=== PATIENT | female | born 1965 | race African-American/Black ===

== ENCOUNTER 2016-09-13 21:30 | Inpatient (IN) | payer OTHER ==
[~2016-09-13] VITALS: Ht 170.2 cm; Wt 65.3 kg
[2016-09-13] MEDS ORDERED: ONDANSETRON PF 4 MG/2 ML VIAL. ONE (21:49)
[2016-09-13] MEDS ORDERED: IV NORMAL SALINE 1000ML BAG 1,000 ML IV SCH ×2 (22:15→23:45)
[2016-09-13] MEDS ORDERED: CLONIDINE HCL 0.1 MG TABLET PO ONE (22:15)
[2016-09-13] MEDS ORDERED: LORAZEPAM 2 MG/ML VIAL IV ONE (22:15)
[2016-09-13 22:21] LABS: BASO # 0.1 x10^3/uL (0.0-0.2); BASO % 1 % (0-3); EOS % 1 % (0-3); HEMATOCRIT 44.9 % (36.0-47.0); HEMOGLOBIN 14.9 g/dL (12.0-15.5); LYMPH # 2.2 x10^3/uL (1.0-4.8); LYMPH % 19 % (24-48); MEAN CORPUSCULAR HEMOGLOBIN 31 pg (25-35); MEAN CORPUSCULAR HGB CONC 33 g/dL (31-37); MEAN CORPUSCULAR VOLUME 92 fL (79-100); MONO % 7 % (0-9); NEUT % 73 % (31-73); PLATELET COUNT 220 x10^3/uL (140-400); RED BLOOD COUNT 4.87 x10^6/uL (3.50-5.40); RED CELL DISTRIBUTION WIDTH 13.7 % (11.5-14.5); WHITE BLOOD COUNT 11.6 x10^3/uL (4.0-11.0)
[2016-09-13 22:38] LABS: BILIRUBIN,URINE NEGATIVE (NEG); GLUCOSE,URINE NEGATIVE (NEG); NITRITE,URINE NEGATIVE (NEG); PROTEIN,URINE NEGATIVE (NEG-TRACE); UROBILINOGEN,URINE 0.2 mg/dL (0.2 mg/dL)
[2016-09-13 22:42] LABS: BACTERIA,URINE FEW /HPF (0-FEW); RBC,URINE OCC /HPF (0-2); SQUAMOUS EPITHELIAL CELL,UR MANY /LPF
[2016-09-13 22:43] LABS: CALCIUM 9.8 mg/dL (8.5-10.1); CREATININE 1.3 mg/dL (0.6-1.0); GFR 52.3; POTASSIUM 3.3 mmol/L (3.5-5.1)
[2016-09-13 22:48] LABS: ALBUMIN 4.5 g/dL (3.4-5.0); ALBUMIN/GLOBULIN RATIO 0.8 (1.0-1.7); MAGNESIUM 1.9 mg/dL (1.8-2.4); TOTAL BILIRUBIN 0.6 mg/dL (0.2-1.0); TOTAL PROTEIN 9.9 g/dL (6.4-8.2)
[2016-09-13 23:05] LABS: CREATINE KINASE 214 U/L (26-192)
[2016-09-13 23:06] LABS: CKMB MASS < 0.5 ng/mL (0.0-3.6)
--- NOTE | 2016-09-13 23:11 | PHYS DOC ---
Past Medical History Past Medical History: Anxiety, Diabetes-Type II, Hypertension, Other Additional Past Medical Histor: OSTEOPOROSIS, RHEUMATOID ARTHRITIS Past Surgical History: No Surgical History Alcohol Use: None Drug Use: Marijuana Adult General Chief Complaint Chief Complaint: ANXIETY/PANIC ATTACK HPI HPI Patient is a 51 year old female who presents with complaint of chest pain and anxiety. Patient states that her symptoms started earlier today and had been progressively worsening. Patient states that she has recently admitted to [facility] for treatment of opiate addiction. Patient states that she was receiving treatment for withdrawal symptoms at this facility over the past 2 days. Patient was released yesterday. Patient states that she was given prescription for Vistaril to help with symptoms. Patient states that despite treatment her symptoms have worsened. Patient states that she also takes lisinopril for treatment of blood pressure and states that she has not missed her medication. Patient states that she has not used opiates in 2 weeks. Patient rates her pain currently is 10 out of 10. Patient states that her chest pain is pressure-like. Patient has had associated nausea, vomiting, abdominal pain, and anxiety. Patient states that the symptoms are similar to previous history of withdrawal from opiates. Review of Systems Review of Systems Constitutional: Denies fever or chills [] Eyes: Denies change in visual acuity, redness, or eye pain [] HENT: Denies nasal congestion or sore throat [] Respiratory: Shortness of breath [] Cardiovascular: Chest pain [] GI: Abdominal pain, nausea, vomiting, diarrhea, denies bloody stools [] : Denies dysuria or hematuria [] Musculoskeletal: Denies back pain or joint pain [] Integument: Denies rash or skin lesions [] Neurologic: Headache, denies focal weakness or sensory changes [] Current Medications Current Medications Current Medications Medications (Trade) Dose Ordered Sig/Jeancarlos Start Time Stop Time Status Last Admin Dose Admin Clonidine HCl (Catapres) 0.3 mg 1X ONCE 09/13/16 22:15 09/13/16 22:16 DC 09/13/16 22:21 0.3 MG Lorazepam 1 mg 1 mg 1X ONCE 09/13/16 22:15 09/13/16 22:16 DC 09/13/16 22:24 1 MG Ondansetron HCl (Zofran) 4 mg STK-MED ONCE 09/13/16 21:49 09/13/16 21:50 DC Sodium Chloride (Iv Sodium Chloride 0.9% 1000ml Bag) 1,000 ml @ 1,000 mls/hr Q1H 09/13/16 22:15 09/13/16 23:14 DC 09/13/16 22:30 1,000 MLS/HR Allergies Allergies Allergies Coded Allergies Type Severity Reaction Last Updated Verified No Known Drug Allergies 09/13/16 No Physical Exam Physical Exam Constitutional: Alert, afebrile, appears anxious, actively vomiting. [] HENT: Normocephalic, atraumatic, bilateral external ears normal, oropharynx moist, no oral exudates, nose normal. [] Eyes: PERRLA, EOMI, conjunctiva normal, no discharge. [] Neck: Normal range of motion, no tenderness, supple, no stridor. [] Cardiovascular:Heart rate regular rhythm, no murmur [] Lungs & Thorax: Bilateral breath sounds clear to auscultation [] Abdomen: Bowel sounds normal, soft, no tenderness, no masses, no pulsatile masses. [] Skin: Warm, dry, no erythema, no rash. [] Back: No tenderness, no CVA tenderness. [] Extremities: No tenderness, no cyanosis, no clubbing, ROM intact, no edema. [] Neurologic: Alert and oriented X 3, normal motor function, normal sensory function, no focal deficits noted. [] Current Patient Data Vital Signs Vital Signs Date Time Temp Pulse Resp B/P Pulse Ox O2 Delivery O2 Flow Rate FiO2 09/13/16 22:21 59 237/118 09/13/16 21:30 99.0 21 99 Room Air 99.0 Lab Values Laboratory Tests Test 09/13/16 21:40 09/13/16 22:25 White Blood Count 11.6x10^3/uL (4.0-11.0) H Red Blood Count 4.87x10^6/uL (3.50-5.40) Hemoglobin 14.9g/dL (12.0-15.5) Hematocrit 44.9% (36.0-47.0) Mean Corpuscular Volume 92fL (79-100) Mean Corpuscular Hemoglobin 31pg (25-35) Mean Corpuscular Hemoglobin Concent 33g/dL (31-37) Red Cell Distribution Width 13.7% (11.5-14.5) Platelet Count 220x10^3/uL (140-400) Neutrophils (%) (Auto) 73% (31-73) Lymphocytes (%) (Auto) 19% (24-48) L Monocytes (%) (Auto) 7% (0-9) Eosinophils (%) (Auto) 1% (0-3) Basophils (%) (Auto) 1% (0-3) Neutrophils # (Auto) 8.4x10^3uL (1.8-7.7) H Lymphocytes # (Auto) 2.2x10^3/uL (1.0-4.8) Monocytes # (Auto) 0.8x10^3/uL (0.0-1.1) Eosinophils # (Auto) 0.1x10^3/uL (0.0-0.7) Basophils # (Auto) 0.1x10^3/uL (0.0-0.2) Sodium Level 141mmol/L (136-145) Potassium Level 3.3mmol/L (3.5-5.1) L Chloride Level 101mmol/L (98-107) Carbon Dioxide Level 28mmol/L (21-32) Anion Gap 12 (6-14) Blood Urea Nitrogen 15mg/dL (7-20) Creatinine 1.3mg/dL (0.6-1.0) H Estimated GFR (Cockcroft-Gault) 52.3 BUN/Creatinine Ratio 12 (6-20) Glucose Level 106mg/dL (70-99) H Calcium Level 9.8mg/dL (8.5-10.1) Magnesium Level 1.9mg/dL (1.8-2.4) Total Bilirubin 0.6mg/dL (0.2-1.0) Aspartate Amino Transferase (AST) 32U/L (15-37) Alanine Aminotransferase (ALT) 48U/L (14-59) Alkaline Phosphatase 108U/L (46-116) Creatine Kinase 214U/L (26-192) H Creatine Kinase MB (Mass) < 0.5ng/mL (0.0-3.6) Creatine Kinase MB Relative Index % (0-4) Troponin I Quantitative < 0.017ng/mL (0.000-0.055) Total Protein 9.9g/dL (6.4-8.2) H Albumin 4.5g/dL (3.4-5.0) Albumin/Globulin Ratio 0.8 (1.0-1.7) L Lipase 206U/L (73-393) Urine Collection Type Unknown Urine Color Yellow Urine Clarity Clear Urine pH 8.0 Urine Specific [place] 1.010 Urine Protein Negativemg/dL (NEG-TRACE) Urine Glucose (UA) Negativemg/dL (NEG) Urine Ketones (Stick) Negativemg/dL (NEG) Urine Blood Negative (NEG) Urine Nitrite Negative (NEG) Urine Bilirubin Negative (NEG) Urine Urobilinogen Dipstick 0.2mg/dL (0.2 mg/dL) Urine Leukocyte Esterase Small (NEG) Urine RBC Occ/HPF (0-2) Urine WBC 5-10/HPF (0-4) Urine Squamous Epithelial Cells Many/LPF Urine Bacteria Few/HPF (0-FEW) Laboratory Tests 09/13/16 21:40 Laboratory Tests 09/13/16 21:40 EKG EKG Interpreted by me: Heart rate 57, sinus rhythm, normal intervals, normal axis, no acute ST/T-wave abnormalities present [] Radiology/Procedures Radiology/Procedures Not performed [] Course & Med Decision Making Course & Med Decision Making Pertinent Labs and Imaging studies reviewed. (See chart for details) Patient was given IV Ativan and oral clonidine in the emergency department. Patient had vomiting shortly after receiving oral clonidine and patient's blood pressures remained dangerously high. The patient will be started on IV Cardene as the patient is experiencing active chest pain with critically high blood pressure. I spoke with Dr. Katz who accepted care of patient in hospital. Dragon Disclaimer Dragon Disclaimer This electronic medical record was generated, in whole or in part, using a voice recognition dictation system. Departure Departure Impression: Primary Impression: Malignant hypertension Additional Impression: Nausea and vomiting Disposition: 09 ADMITTED INPATIENT Admitting Physician: Fili Katz Condition: GUARDED Referrals: TONYA CASTILLO MD (PCP) Problem Qualifiers Additional Impression: Nausea and vomiting Vomiting type: unspecified Vomiting Intractability: unspecified Qualified Code: R11.2 - Nausea with vomiting, unspecified MATTHIEU VIZCARRA MD Sep 13, 2016 23:11
[2016-09-13] MEDS ORDERED: NICARDIPINE HCL 50 MG in IV NORMAL SALINE 250ML 250 ML IV PRN (23:30)
--- NOTE | 2016-09-13 23:33 | ACF ---
Admission Forms Criteria CHEST PAIN Clinical Indications for Admission to Inpatient Care (Place 'X' for any and all applicable criteria): Admission is indicated for chest pain and ANY ONE of the following(1)(2)(3)(4)(5 ): [ ]I. Angina with acute coronary syndrome (Also use Myocardial Infarction or Angina guideline) [ ]II. Hemodynamic instability [ ]III. Angina needing acute intervention as indicated by ALL of the following( 11)(12): [ ]a) Unstable angina is present as indicated by angina that is ANY ONE of the following: [ ]i) New onset [ ]ii) Nocturnal [ ]iii) Prolonged at rest [ ]iv) Progressive [ ]b) Angina warrants acute intervention as indicated by ANY ONE of the following: [ ]i) Recurrent angina (e.g, not responding as previously to treatment) [ ]ii) Angina at rest or with low-level activities despite initial medical therapy [ ]iii) New or presumably new ST-segment depression on ECG [ ]iv) Signs or symptoms of heart failure (eg, dyspnea, pulmonary edema) [ ]v) New or worsening mitral regurgitation [ ]vi) Hemodynamic instability [ ]vii) Dangerous arrhythmia (eg, sustained ventricular tachycardia) [ ]viii) History of percutaneous coronary intervention within 6 months [ ]ix) History of coronary artery bypass graft surgery [ ]x) SANCHEZ risk score of 2 or greater[A] [ ]xi) History of Diabetes(14) [ ]xii) High-risk cardiac ischemia findings on noninvasive testing (e.g, echocardiogram, treadmill testing, nuclear scan) [ ]xiii) Chronic renal insufficiency (ie, estimated GFR less than 60 mL/min/1.732m) [ ]xiv) Left ventricular ejection fraction less than 40% [ ]IV. Evidence of WI (eg, cardiac biomarkers positive, ST-segment elevation on ECG) also use Myocardial Infarction Criteria Form. [ ]V. Pulmonary edema [ ]. Respiratory distress [ ]VII. Chest pain indicative of serious diagnosis other than coronary artery disease (eg, aortic dissection) [ ]VIII. Contraindications and/or Inappropriate clinical situations for Observational Care in patients with Chest Pain, when ANY ONE of the following is required: [ ]a) Patient with risk factor for pulmonary embolism, acute coronary syndrome and myocardial infarction (18) [ ]b) Patient with Pulmonary embolism require an average LOS of 4.3 days, therefore emergency department observation management is inappropriate 18,23 [ ]c) Painful condition/s in the elderly, have the highest rate of recidivism after emergency department observation management (10.8%) 20,21,22 [ ]d) Elevated cardiac biomarker requires intensive and exhaustive care (19) [X]IX. General contraindications and/or Inappropriate clinical situations for Observational Care in patients with Chest Pain, when ANY ONE of the following is required: [ ]a) Prediction of prolongation of LOS based on ANY ONE of the following may be considered as a contraindication for observational care 2, 3, 4, 5, 6, 7, 8, 9, 10, 11 [ ]i) Age > 65 yrs. [ ]ii) Patient arriving by ambulance [ ]iii) Patient with high acuity [ ]iv) Patient requiring vital sign monitoring [ ]v) Patient on IV medication [X]b) Systolic blood pressures 180mmHg 3,12 [ ]c) Patient with altered mental status including delirium and other alteration of consciousness, (3) [ ]d) Patient whose discharge disposition will be to a [facility] home or rehabilitation home should not be managed in Emergency Department Observation Unit. CMS rule requires 3 days hospital stay before such placement. 3,13 [ ]e) Patient with failure to thrive due to broad array of etiologies 3,16,17 [ ]f) Inability to ambulate 3,14 Extended stay beyond goal length of stay may be needed for (1)(28): [ ]a) Specific condition diagnosed after evaluation (eg, pulmonary embolism, aortic dissection) [ ]b) Unstable angina [ ]c) Continued suspicion of acute coronary syndrome with inability to complete needed cardiac evaluation (eg, patient clinically unable to undergo stress testing) [ ]d) Myocardial infarction (Contents from ANGINA and CHEST PAIN clinical indications for admission to inpatient care have been integrated in this form) The original [email or web address] content created by [employer] has been revised. The portions of the content which have been revised are identified through the use of italic text or in bold, and [employer] has neither reviewed nor approved the modified material. All other unmodified content is copyright [employer]. Please see references footnoted in the original [employer] edition 2016 Admission Criteria Met?: Yes DAVID CARTER Sep 13, 2016 23:33
[2016-09-13] MEDS ORDERED: LORAZEPAM 2 MG/ML VIAL IV PRN (23:45)
[2016-09-13] MEDS ORDERED: ACETAMINOPHEN 325 MG TABLET. PO PRN (23:45)
[2016-09-13] MEDS ORDERED: ONDANSETRON PF 4 MG/2 ML VIAL. IV PRN (23:45)
[2016-09-14] VITALS (26 sets, daily range): BP systolic 136–208; BP diastolic 6–108
[2016-09-14] MEDS: LORAZEPAM 2 MG/ML VIAL IV PRN ×3 (00:45→09:14)
[2016-09-14 06:26] LABS: CALCIUM 9.6 mg/dL (8.5-10.1); CREATININE 1.1 mg/dL (0.6-1.0); GFR 63.4; POTASSIUM 3.2 mmol/L (3.5-5.1)
[2016-09-14] MEDS ORDERED: LISI-334 PO (06:38)
[2016-09-14] MEDS ORDERED: FOLI1TAB16 PO (06:45)
[2016-09-14] MEDS ORDERED: ZIPR20CA2 PO (06:45)
[2016-09-14] MEDS ORDERED: MULT-208 PO (06:45)
[2016-09-14] MEDS ORDERED: HYDR25CA PO (06:45)
--- NOTE | 2016-09-14 06:49 | EKG ---
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
[2016-09-14] MEDS ORDERED: ACETAMINOPHEN 325 MG TABLET. PO PRN (07:15)
[2016-09-14] MEDS ORDERED: ONDANSETRON PF 4 MG/2 ML VIAL. IV PRN ×2 (07:15→22:15)
[2016-09-14] MEDS ORDERED: hydrALAZINE 20 MG/ML VIAL. IVP PRN (07:15)
[2016-09-14] MEDS ORDERED: HYDROXYZINE PAMOATE 25 MG CAPSULE PO PRN (07:15)
[2016-09-14] MEDS ORDERED: PANTOPRAZOLE 40 MG TABLET. PO SCH (07:30)
[2016-09-14] MEDS ORDERED: IV NORMAL SALINE 1000ML BAG 1,000 ML IV SCH (07:45)
[2016-09-14] MEDS ORDERED: POTASSIUM CHLORIDE 40 MEQ in IV NORMAL SALINE 1000ML BAG 1,000 ML IV SCH (08:00)
[2016-09-14] MEDS ORDERED: FOLIC ACID 1 MG TABLET PO SCH (09:00)
[2016-09-14] MEDS ORDERED: MULTIVITAMIN with MINERAL TABLET. PO SCH (09:00)
[2016-09-14] MEDS ORDERED: ZIPRASIDONE 20 MG CAPSULE PO SCH (09:00)
[2016-09-14] MEDS ORDERED: PROMETHAZINE 12.5 MG in IV NORMAL SALINE 50ML 50 ML IV PRN (09:00)
[2016-09-14] MEDS ORDERED: LISINOPRIL 20 MG TABLET PO SCH (09:00)
--- NOTE | 2016-09-14 09:02 | PDOC1 ---
History and Physical Date of Admission Date of Admission DATE: 09/14/16 TIME: 08:54 Identification/Chief Complaint Chief Complaint chest pain and anxiety Source Source: Caregiver, Chart review, Patient History of Present Illness History of Present Illness 51 y./o AA female, prev PCP was DR. Tiara Forte but she has not seen him in a while and PCP wishes pt to be admitted under hospitalist group. Hx limited as pt appears weak, possibly from anxiolytic given at ER? Talks to me eyes closed and when asked she tells me her back is bothersome to her, but per staff was her abdomen, Emesis, K 3.2, Tachycardic, sinus, bounding heart beats Pt admitted for malignant HTN on nicardipine gtt in [facility] ICU Looking at ER records, recently being transitioned to some anti hypertensives? also known opiate addiction on some OP detox program,. Rest of hx again, scarce due pt uncooperation Past Medical History Cardiovascular: HTN Psych: Addictions Past Surgical History Past Surgical History: Other (unknown) Family History Family History: Family History Unknown Social History Smoke: No ALCOHOL: none Drugs: Other (addictions, opiate) Current Problem List Problem List Problems Medical Problems: (1) Malignant hypertension Status: Acute (2) Nausea and vomiting Status: Acute Problems: Current Medications Current Medications Current Medications Ondansetron HCl (Zofran) 4 mg STK-MED ONCE .ROUTE ; Start 09/13/16 at 21:49; Stop 09/13/16 at 21:50; Status DC Lorazepam 1 mg 1 mg 1X ONCE IV Last administered on 09/13/16 22:24; Start at 22:15; Stop 09/13/16 at 22:16; Status DC Sodium Chloride (Iv Sodium Chloride 0.9% 1000ml Bag) 1,000 ml @ 1,000 mls/hr Q1H IV Last administered on 09/13/16 22:30; Start 09/13/16 at 22:15; Stop at 23:14; Status DC Clonidine HCl 0.3 mg 0.3 mg 1X ONCE PO Last administered on 09/13/16 22:21; Start 09/13/16 at 22:15; Stop 09/13/16 at 22:16; Status DC Nicardipine HCl/ Sodium Chloride (Cardene/Iv Sodium Chloride 0.9% 250ml) 270 ml @ 0 mls/hr CONT PRN IV SEE I/O RECORD Last administered on 09/13/16 23:30; Start 09/13/16 at 23:30 Ondansetron HCl 4 mg 4 mg PRN Q8HRS PRN IV NAUSEA/VOMITING; Start 09/13/16 at 23:45; Stop 09/14/16 at 07:28; Status DC Sodium Chloride (Iv Sodium Chloride 0.9% 1000ml Bag) 1,000 ml @ 100 mls/hr Q10H IV Last administered on 09/14/16 00:55; Start 09/13/16 at 23:45; Stop at 07:28; Status DC Acetaminophen (Tylenol) 650 mg PRN Q4HRS PRN PO FEVER; Start 09/13/16 at 23:45 ; Stop 09/14/16 at 07:28; Status DC Lorazepam (Ativan) 2 mg PRN Q4HRS PRN IV ANXIETY / AGITATION; Start 09/13/16 at 23:45; Stop 09/14/16 at 00:43; Status DC Lorazepam 2 mg 2 mg PRN Q2HR PRN IV ANXIETY / AGITATION Last administered on 02:43; Start 09/14/16 at 00:45 Potassium Chloride/Sodium Chloride (Iv Sodium Chloride 0.9% 1000ml Bag) 1,020 ml @ 75 mls/hr [id number] IV ; Start 09/14/16 at 08:00; Stop 09/14/16 at 08:00; Status DC Ondansetron HCl (Zofran) 4 mg PRN Q8HRS PRN IV NAUSEA/VOMITING Last administered on 09/14/16 08:05; Start 09/14/16 at 07:15; Stop 09/14/16 at 08:41 ; Status DC Acetaminophen (Tylenol) 650 mg PRN Q4HRS PRN PO FEVER; Start 09/14/16 at 07:15 Hydralazine HCl (Apresoline) 10 mg PRN Q4HRS PRN IVP ELEVATED BP, SEE COMMENTS ; Start 09/14/16 at 07:15; Stop 09/14/16 at 07:47; Status DC Pantoprazole Sodium (Protonix) 40 mg DAILYAC PO ; Start 09/14/16 at 07:30; Stop 09/14/16 at 07:47; Status DC Folic Acid (Folic Acid) 1 mg DAILY PO ; Start 09/14/16 at 09:00; Stop 09/14/16 at 09:00; Status DC Hydroxyzine Pamoate (Vistaril) 25 mg PRN Q4HRS PRN PO ALLERGIES; Start at 07:15; Stop 09/14/16 at 07:47; Status DC Lisinopril (Prinivil) 20 mg DAILY PO ; Start 09/14/16 at 09:00; Stop 09/14/16 at 09:00; Status DC Ziprasidone (Geodon) 20 mg BID PO ; Start 09/14/16 at 09:00; Stop 09/14/16 at 09 :00; Status DC Multivitamins 1 tab 1 tab DAILY PO ; Start 09/14/16 at 09:00; Stop 09/14/16 at 09:00; Status DC Sodium Chloride (Iv Sodium Chloride 0.9% 1000ml Bag) 1,000 ml @ 100 mls/hr Q10H IV ; Start 09/14/16 at 07:45 Ondansetron HCl (Zofran) 4 mg PRN Q6HRS PRN IV NAUSEA/VOMITING; Start 09/15/16 at 07:15 Active Scripts Active Reported Multi-Day Vitamins (Multivitamin) 1 Each Tablet 1 Tab PO DAILY Folic Acid 1 Mg Tablet 1 Mg PO DAILY Vistaril (Hydroxyzine Pamoate) 25 Mg Capsule 25 Mg PO Q4HRS PRN 180 Days Geodon (Ziprasidone Hcl) 20 Mg Capsule 1 Cap PO BID Lisinopril 20 Mg Tablet 1 Tab PO DAILY Allergies Allergies: Coded Allergies: No Known Drug Allergies (Unverified , 09/13/16) ROS Review of System cant be obtained - pls refer to my HPI for reason Physical Exam General: No acute distress HEENT: Atraumatic, PERRLA Lungs: Clear to auscultation, Normal air movement Heart: S1S2, RRR, no thrills, no rubs, no gallops Cardiovascular: S1, S2 Breasts: Normal Abdomen: Soft, Other (tenderness epigastric area) Rectal Exam: not examined PELVIC: Nml ext genitalia Extremities: No clubbing, No cyanosis, No edema, Normal pulses, No tenderness/ swelling Skin: No rashes, No breakdown, No significant lesion Neuro: Normal gait, Normal speech, Strength at 5/5 X4 ext, Normal tone, Sensation intact, Cranial nerves 3-12 NL, Reflexes 2+ Psych/Mental Status: Mental status NL, Mood NL Vitals Vitals Vital Signs Date Time Temp Pulse Resp B/P Pulse Ox O2 Delivery O2 Flow Rate FiO2 09/14/16 08:38 103 16 157/87 99 Room Air 09/14/16 07:00 98.1 98.1 Labs Labs Laboratory Tests Test 09/13/16 21:40 09/13/16 22:25 09/14/16 05:35 White Blood Count 11.6x10^3/uL (4.0-11.0) Red Blood Count 4.87x10^6/uL (3.50-5.40) Hemoglobin 14.9g/dL (12.0-15.5) Hematocrit 44.9% (36.0-47.0) Mean Corpuscular Volume 92fL (79-100) Mean Corpuscular Hemoglobin 31pg (25-35) Mean Corpuscular Hemoglobin Concent 33g/dL (31-37) Red Cell Distribution Width 13.7% (11.5-14.5) Platelet Count 220x10^3/uL (140-400) Neutrophils (%) (Auto) 73% (31-73) Lymphocytes (%) (Auto) 19% (24-48) Monocytes (%) (Auto) 7% (0-9) Eosinophils (%) (Auto) 1% (0-3) Basophils (%) (Auto) 1% (0-3) Neutrophils # (Auto) 8.4x10^3uL (1.8-7.7) Lymphocytes # (Auto) 2.2x10^3/uL (1.0-4.8) Monocytes # (Auto) 0.8x10^3/uL (0.0-1.1) Eosinophils # (Auto) 0.1x10^3/uL (0.0-0.7) Basophils # (Auto) 0.1x10^3/uL (0.0-0.2) Sodium Level 141mmol/L (136-145) 138mmol/L (136-145) Potassium Level 3.3mmol/L (3.5-5.1) 3.2mmol/L (3.5-5.1) Chloride Level 101mmol/L (98-107) 99mmol/L (98-107) Carbon Dioxide Level 28mmol/L (21-32) 27mmol/L (21-32) Anion Gap 12 (6-14) 12 (6-14) Blood Urea Nitrogen 15mg/dL (7-20) 10mg/dL (7-20) Creatinine 1.3mg/dL (0.6-1.0) 1.1mg/dL (0.6-1.0) Estimated GFR (Cockcroft-Gault) 52.3 63.4 BUN/Creatinine Ratio 12 (6-20) Glucose Level 106mg/dL (70-99) 159mg/dL (70-99) Calcium Level 9.8mg/dL (8.5-10.1) 9.6mg/dL (8.5-10.1) Magnesium Level 1.9mg/dL (1.8-2.4) Total Bilirubin 0.6mg/dL (0.2-1.0) Aspartate Amino Transf (AST/SGOT) 32U/L (15-37) Alanine Aminotransferase (ALT/SGPT) 48U/L (14-59) Alkaline Phosphatase 108U/L (46-116) Creatine Kinase 214U/L (26-192) Creatine Kinase MB (Mass) < 0.5ng/mL (0.0-3.6) Creatine Kinase MB Relative Index % (0-4) Troponin I Quantitative < 0.017ng/mL (0.000-0.055) < 0.017ng/mL (0.000-0.055) Total Protein 9.9g/dL (6.4-8.2) Albumin 4.5g/dL (3.4-5.0) Albumin/Globulin Ratio 0.8 (1.0-1.7) Lipase 206U/L (73-393) Urine Collection Type Unknown Urine Color Yellow Urine Clarity Clear Urine pH 8.0 Urine Specific [place] 1.010 Urine Protein Negativemg/dL (NEG-TRACE) Urine Glucose (UA) Negativemg/dL (NEG) Urine Ketones (Stick) Negativemg/dL (NEG) Urine Blood Negative (NEG) Urine Nitrite Negative (NEG) Urine Bilirubin Negative (NEG) Urine Urobilinogen Dipstick 0.2mg/dL (0.2 mg/dL) Urine Leukocyte Esterase Small (NEG) Urine RBC Occ/HPF (0-2) Urine WBC 5-10/HPF (0-4) Urine Squamous Epithelial Cells Many/LPF Urine Bacteria Few/HPF (0-FEW) Laboratory Tests Test 09/13/16 21:40 09/13/16 22:25 09/14/16 05:35 White Blood Count 11.6x10^3/uL (4.0-11.0) Red Blood Count 4.87x10^6/uL (3.50-5.40) Hemoglobin 14.9g/dL (12.0-15.5) Hematocrit 44.9% (36.0-47.0) Mean Corpuscular Volume 92fL (79-100) Mean Corpuscular Hemoglobin 31pg (25-35) Mean Corpuscular Hemoglobin Concent 33g/dL (31-37) Red Cell Distribution Width 13.7% (11.5-14.5) Platelet Count 220x10^3/uL (140-400) Neutrophils (%) (Auto) 73% (31-73) Lymphocytes (%) (Auto) 19% (24-48) Monocytes (%) (Auto) 7% (0-9) Eosinophils (%) (Auto) 1% (0-3) Basophils (%) (Auto) 1% (0-3) Neutrophils # (Auto) 8.4x10^3uL (1.8-7.7) Lymphocytes # (Auto) 2.2x10^3/uL (1.0-4.8) Monocytes # (Auto) 0.8x10^3/uL (0.0-1.1) Eosinophils # (Auto) 0.1x10^3/uL (0.0-0.7) Basophils # (Auto) 0.1x10^3/uL (0.0-0.2) Sodium Level 141mmol/L (136-145) 138mmol/L (136-145) Potassium Level 3.3mmol/L (3.5-5.1) 3.2mmol/L (3.5-5.1) Chloride Level 101mmol/L (98-107) 99mmol/L (98-107) Carbon Dioxide Level 28mmol/L (21-32) 27mmol/L (21-32) Anion Gap 12 (6-14) 12 (6-14) Blood Urea Nitrogen 15mg/dL (7-20) 10mg/dL (7-20) Creatinine 1.3mg/dL (0.6-1.0) 1.1mg/dL (0.6-1.0) Estimated GFR (Cockcroft-Gault) 52.3 63.4 BUN/Creatinine Ratio 12 (6-20) Glucose Level 106mg/dL (70-99) 159mg/dL (70-99) Calcium Level 9.8mg/dL (8.5-10.1) 9.6mg/dL (8.5-10.1) Magnesium Level 1.9mg/dL (1.8-2.4) Total Bilirubin 0.6mg/dL (0.2-1.0) Aspartate Amino Transf (AST/SGOT) 32U/L (15-37) Alanine Aminotransferase (ALT/SGPT) 48U/L (14-59) Alkaline Phosphatase 108U/L (46-116) Creatine Kinase 214U/L (26-192) Creatine Kinase MB (Mass) < 0.5ng/mL (0.0-3.6) Creatine Kinase MB Relative Index % (0-4) Troponin I Quantitative < 0.017ng/mL (0.000-0.055) < 0.017ng/mL (0.000-0.055) Total Protein 9.9g/dL (6.4-8.2) Albumin 4.5g/dL (3.4-5.0) Albumin/Globulin Ratio 0.8 (1.0-1.7) Lipase 206U/L (73-393) Urine Collection Type Unknown Urine Color Yellow Urine Clarity Clear Urine pH 8.0 Urine Specific [place] 1.010 Urine Protein Negativemg/dL (NEG-TRACE) Urine Glucose (UA) Negativemg/dL (NEG) Urine Ketones (Stick) Negativemg/dL (NEG) Urine Blood Negative (NEG) Urine Nitrite Negative (NEG) Urine Bilirubin Negative (NEG) Urine Urobilinogen Dipstick 0.2mg/dL (0.2 mg/dL) Urine Leukocyte Esterase Small (NEG) Urine RBC Occ/HPF (0-2) Urine WBC 5-10/HPF (0-4) Urine Squamous Epithelial Cells Many/LPF Urine Bacteria Few/HPF (0-FEW) VTE Prophylaxis Ordered VTE Prophylaxis Devices: Yes VTE Pharmacological Prophylaxi: Yes Assessment/Plan Assessment/Plan 1. Malignant HTN POA 2. Emesis with hypokalemia 3. opiate addiction follows with OP pgm 4. Abd pain, acute 5,.Acute on chronic back pain 6. HIMA 7. Leukocytosis, reactive vs imflammatory PLAN: [facility] admit Nicardipine gtt Check CT abd pelvis without contrast (UA is relatively clean) Check lactate Monitor tachycardia Recheck BMP and CBC tammi ( crea and K) Replace K thru iV May check mag too Add phenergan IV Maintain liquid diet for now, may ADAT once less nausea DVT and pPI prophy for now dw [facility] RN OLVIN FAGAN MD Sep 14, 2016 09:02
--- NOTE | 2016-09-14 09:27 | RAD ---
Indication dizziness. Nausea vomiting. History of hypertension. Tachycardia. A single view of the chest was obtained. No prior imaging of the chest is available. Heart size is normal. The pulmonary vasculature is normal. Slightly tortuous thoracic aorta is noted. The lungs are clear. There is no pleural fluid or pneumothorax. The visualized bony structures appear grossly intact. IMPRESSION: No acute or focal process is seen in chest
[2016-09-14] MEDS: POTASSIUM CHLORIDE 10MEQ 100 ML IV SCH ×2 (09:37→12:50)
--- NOTE | 2016-09-14 10:21 | PDOC2 ---
NOLA BOYD DYE [employer] TESTING TECHNICIAN 09/14/16 1021: CARDIAC CONSULT DATE OF CONSULT Date of Consult DATE: 09/14/16 TIME: 10:17 REASON FOR CONSULT Reason for Consult: Malignant hypertension REFERRING PHYSICIAN Referring Physician: Dr. Valdivia SOURCE Source: Chart review, Patient HISTORY OF PRESENT ILLNESS HISTORY OF PRESENT ILLNESS This is a 51 yo female who presented with complaints of abdominal and chest pain. Patient drowsy, eyes closed; providing minimal information. Pain located in her mid-epigastric region extending up to central chest. Stabbing in nature. No other additional information provided. HPI mainly obtained from chart review as patient not cooperating. Patient was apparently at [facility] for treatment of opiate addiction. Was released 09/12 from facility. Received treatment for withdrawal; on Vistaril; symptoms worsened can into ED for further eval. Associated nausea/vomiting and anxiety; symptoms similar to previous history of withdrawal from opiates per chart review. Initial BP 246/120, which prompted this consult. Cardene gtt initiated. Unknown whether patient has been taking antiHTN therapy as prescribed. PAST MEDICAL HISTORY Cardiovascular: HTN Psych: Anxiety, Addictions Rheumatologic: Rheumatoid arthritis Endocrine: Diabetes, Osteoporosis PAST SURGICAL HISTORY Past Surgical History: Other (unknown) FAMILY HISTORY Family History: Family History Unknown CURRENT MEDICATIONS CURRENT MEDICATIONS Current Medications Medications (Trade) Dose Ordered Sig/Jeancarlos Route PRN Reason Start Time Stop Time Status Last Admin Dose Admin Lorazepam 1 mg 1 mg 1X ONCE IV 09/13/16 22:15 09/13/16 22:16 DC 09/13/16 22:24 Sodium Chloride (Iv Sodium Chloride 0.9% 1000ml Bag) 1,000 ml @ 1,000 mls/hr Q1H IV 09/13/16 22:15 09/13/16 23:14 DC 09/13/16 22:30 Clonidine HCl 0.3 mg 0.3 mg 1X ONCE PO 09/13/16 22:15 09/13/16 22:16 DC 09/13/16 22:21 Nicardipine HCl 50 mg/Sodium Chloride 270 ml @ 0 mls/hr CONT PRN IV SEE I/O RECORD 09/13/16 23:30 09/13/16 23:30 Sodium Chloride (Iv Sodium Chloride 0.9% 1000ml Bag) 1,000 ml @ 100 mls/hr Q10H IV 09/13/16 23:45 09/14/16 07:28 DC 09/14/16 00:55 Lorazepam (Ativan) 2 mg PRN Q2HR PRN IV ANXIETY / AGITATION 09/14/16 00:45 09/14/16 09:14 Ondansetron HCl 4 mg 4 mg PRN Q8HRS PRN IV NAUSEA/VOMITING 09/14/16 07:15 09/14/16 08:41 DC 09/14/16 08:05 Potassium Chloride (KCl Premix 10meq) 100 ml @ 100 mls/hr Q1H IV 09/14/16 09:00 09/14/16 10:59 09/14/16 09:37 ALLERGIES ALLERGIES: Coded Allergies: No Known Drug Allergies (Unverified , 09/13/16) ROS Review of System unobtainable PHYSICAL EXAM General: No acute distress, Other (drowsy, not wanting to cooperate ) HEENT: Atraumatic, Mucous membr. moist/pink Lungs: Clear to auscultation Heart: Normal S1, Normal S2, Other (tele ST. sternal tenderness upon palpation) Abdomen: Soft, Other (mid-epigastric tenderness) Extremities: No edema, Normal pulses Skin: No breakdown, No significant lesion Neuro: Normal tone, Sensation intact, Other Psych/Mental Status: Other (flat, drowsy) MUSCULOSKELETAL: No deformity, No swelling VITALS VITALS Vital Signs Date Time Temp Pulse Resp B/P Pulse Ox O2 Delivery O2 Flow Rate FiO2 09/14/16 08:38 103 16 157/87 99 Room Air 09/14/16 07:00 98.1 98.1 LABS Lab: Laboratory Tests Test 09/13/16 21:40 09/13/16 22:25 09/14/16 05:35 White Blood Count 11.6x10^3/uL (4.0-11.0) Red Blood Count 4.87x10^6/uL (3.50-5.40) Hemoglobin 14.9g/dL (12.0-15.5) Hematocrit 44.9% (36.0-47.0) Mean Corpuscular Volume 92fL (79-100) Mean Corpuscular Hemoglobin 31pg (25-35) Mean Corpuscular Hemoglobin Concent 33g/dL (31-37) Red Cell Distribution Width 13.7% (11.5-14.5) Platelet Count 220x10^3/uL (140-400) Neutrophils (%) (Auto) 73% (31-73) Lymphocytes (%) (Auto) 19% (24-48) Monocytes (%) (Auto) 7% (0-9) Eosinophils (%) (Auto) 1% (0-3) Basophils (%) (Auto) 1% (0-3) Neutrophils # (Auto) 8.4x10^3uL (1.8-7.7) Lymphocytes # (Auto) 2.2x10^3/uL (1.0-4.8) Monocytes # (Auto) 0.8x10^3/uL (0.0-1.1) Eosinophils # (Auto) 0.1x10^3/uL (0.0-0.7) Basophils # (Auto) 0.1x10^3/uL (0.0-0.2) Sodium Level 141mmol/L (136-145) 138mmol/L (136-145) Potassium Level 3.3mmol/L (3.5-5.1) 3.2mmol/L (3.5-5.1) Chloride Level 101mmol/L (98-107) 99mmol/L (98-107) Carbon Dioxide Level 28mmol/L (21-32) 27mmol/L (21-32) Anion Gap 12 (6-14) 12 (6-14) Blood Urea Nitrogen 15mg/dL (7-20) 10mg/dL (7-20) Creatinine 1.3mg/dL (0.6-1.0) 1.1mg/dL (0.6-1.0) Estimated GFR (Cockcroft-Gault) 52.3 63.4 BUN/Creatinine Ratio 12 (6-20) Glucose Level 106mg/dL (70-99) 159mg/dL (70-99) Calcium Level 9.8mg/dL (8.5-10.1) 9.6mg/dL (8.5-10.1) Magnesium Level 1.9mg/dL (1.8-2.4) Total Bilirubin 0.6mg/dL (0.2-1.0) Aspartate Amino Transf (AST/SGOT) 32U/L (15-37) Alanine Aminotransferase (ALT/SGPT) 48U/L (14-59) Alkaline Phosphatase 108U/L (46-116) Creatine Kinase 214U/L (26-192) Creatine Kinase MB (Mass) < 0.5ng/mL (0.0-3.6) Creatine Kinase MB Relative Index % (0-4) Troponin I Quantitative < 0.017ng/mL (0.000-0.055) < 0.017ng/mL (0.000-0.055) Total Protein 9.9g/dL (6.4-8.2) Albumin 4.5g/dL (3.4-5.0) Albumin/Globulin Ratio 0.8 (1.0-1.7) Lipase 206U/L (73-393) Urine Collection Type Unknown Urine Color Yellow Urine Clarity Clear Urine pH 8.0 Urine Specific [place] 1.010 Urine Protein Negativemg/dL (NEG-TRACE) Urine Glucose (UA) Negativemg/dL (NEG) Urine Ketones (Stick) Negativemg/dL (NEG) Urine Blood Negative (NEG) Urine Nitrite Negative (NEG) Urine Bilirubin Negative (NEG) Urine Urobilinogen Dipstick 0.2mg/dL (0.2 mg/dL) Urine Leukocyte Esterase Small (NEG) Urine RBC Occ/HPF (0-2) Urine WBC 5-10/HPF (0-4) Urine Squamous Epithelial Cells Many/LPF Urine Bacteria Few/HPF (0-FEW) ASSESSMENT/PLAN ASSESSMENT/PLAN 1. Malignant hypertension 2. Chest pain, atypical 3. Abdominal pain 4. Opiate withdrawal 5. Emesis 6. Hypokalemia 7. Leukocytosis 8. Lactic acidosis 9. HIMA Recommendations AMI ruled out. Monitor lytes; replace as warranted Hypertension and tachycardia secondary to opiate withdrawal; ? medication compliance Taking oral; resume aniHTN therapy- titrate off Cardene gtt as able. Monitor trends to assess need for therapy titration IV Hydralazine PRN Supportive care Management of withdrawal per PCP Problems: TYRA PEREZ MD 09/14/16 1529: CARDIAC CONSULT ALLERGIES ALLERGIES: Coded Allergies: No Known Drug Allergies (Unverified , 09/13/16) ASSESSMENT/PLAN ASSESSMENT/PLAN Patient seen and examined. Agree with above nurse practitioner note. 51-year-old woman with polysubstance abuse presenting with malignant hypertension. Blood pressure better controlled on intravenous drip. She appears somnolent on examination. Normal heart tones. Supportive care from a cardiac standpoint. We'll follow along. Problems: NOLA BOYD APRN Sep 14, 2016 10:21 TYRA PEREZ MD Sep 14, 2016 15:29
--- NOTE | 2016-09-14 11:17 | RAD ---
Noncontrast CT scan of the abdomen and pelvis without comparison for nausea and abdominal pain. Technique: Contiguous helical axial images are obtained from the apex the diaphragm to the pelvic floor. No IV contrast was administered. Sagittal and coronal reformations are evaluated. Findings: The lung bases are clear. Evaluation of the solid organ parenchyma is limited by lack of IV contrast. No gross morphologic abnormalities of the liver, spleen, pancreas, gallbladder, adrenal glands, or either kidney is identified. There is no hydronephrosis. No ureteral calcifications are seen. The urinary bladder is fluid distended and grossly unremarkable. There is a mild amount stool distributed throughout the colon. No gross bowel wall thickening or evidence of bowel obstruction is seen. The appendix is identified and appears normal. No suspicious lymphadenopathy is identified. No loculated fluid collections are evident. Within the pelvis, the uterus does appear enlarged, and there is a trace amount of adnexal fluid bilaterally. Findings may be physiologic. Clinical correlation is recommended. If clinically warranted, the pelvis could be better evaluated with transabdominal and endovaginal pelvic ultrasound. No suspicious osteoblastic or osteolytic bone lesions are evident. There is grade 1 anterolisthesis of L4 on L5, with severe bilateral facet arthrosis and what appears to be at least unilateral and possibly bilateral pars defects at L4. Moderate multifocal atherosclerosis is noted. Impression: 1. Enlarged uterus with a small amount of deep pelvic fluid. Findings are nonspecific and may be physiologic. Clinical correlation is recommended. If clinically warranted, further evaluation with transabdominal and endovaginal pelvic ultrasound could be pursued. 2. Grade 1 anterolisthesis of L4 on L5 with unilateral and possibly bilateral pars defects at L4. 3. No other discernible acute abdominal abnormality.
[2016-09-14 12:08] LABS: BARBITURATES NEG (NEG); BENZODIAZEPINES NEG (NEG); CANNABINOIDS POS (NEG); COCAINE POS (NEG); METHADONE NEG (NEG); OPIATES NEG (NEG); PHENCYCLIDINE NEG (NEG)
[2016-09-14 12:11] LABS: ETHANOL, URINE NEG (NEG)
[2016-09-14] MEDS ORDERED: MORPHINE SULFATE 2 MG/ML DISP.SYRIN. IV PRN (12:30)
[2016-09-14] MEDS: OXYCODONE/APAP 5/325 TABLET. PO PRN ×2 (12:48→23:00)
[2016-09-14] MEDS: LIDOCAINE (700MG/PATCH) PATCH. TD SCH (12:48)
[2016-09-14] MEDS: LISINOPRIL 20 MG TABLET PO SCH (14:20)
[2016-09-14] MEDS: hydrALAZINE 20 MG/ML VIAL. IVP PRN (14:21)
--- NOTE | 2016-09-14 21:23 | CONS ---
DATE OF CONSULTATION: 09/14/2016 ATTENDING PHYSICIAN: Dr. Marcum. The patient was seen at the request of Dr. Marcum for rehab evaluation. HISTORY OF PRESENT ILLNESS: This is a 51-year-old, right-handed female, on disability for about 20 years. The patient with chronic pain from rheumatoid arthritis and osteoporosis, being followed by Dr. Jason Forte and Dr. Krause, and has been taking opioids mainly heroin since May, and she has gone through detox program recently. The patient decided to stop taking that medication by herself. The patient was admitted to the Emergency Room this morning with chest pain and anxiety, started early this morning, getting worse. She had recently got admitted to [facility] [place] for treatment of opiate addiction. She was receiving treatment for withdrawal symptoms at that facility over the past 2 days. She was released yesterday. She was given a prescription for Vistaril to help with symptoms. Her symptoms had worsened. She takes lisinopril for treatment of hypertension. She has not used opiates in about 2 weeks. She admitted her pain at 10/10, pressure-like chest pain. Also had nausea, vomiting, abdominal pain, and anxiety. Symptoms are similar to previous history of withdrawal from opiates. The patient is not known allergic to any medication. Past medical history also includes diabetes mellitus type 2, hypertension. The patient lives alone, had stairs for her to manage, and she has been independent with her mobility and self-care skills, not using any assistive devices prior to the present hospitalization. She admits pain all over. She denies any radiation of pain from the back to the extremities. The patient was noted with white blood cell count of 11,600. She had CT scan of the abdomen and pelvis which revealed enlarged uterus with a small amount of deep pelvic fluid nonspecific; grade 1 anterolisthesis of L4 on L5 with unilateral and possibly bilateral pars defect at L4. No other acute abnormality was detected. Chest x-ray was within normal limits. PHYSICAL EXAMINATION: Today revealed a middle-aged female. The patient is awake, oriented to place and person, follows commands appropriately. Moves all 4 extremities voluntarily, where she had 4+/5 grade muscle strength. Deep tendon reflexes are decreased overall with absent knee and ankle jerks, and she had equal perception of touch and pinprick sensation bilaterally. No tenderness to palpation over thoracic or lumbar spine or adjoining sacroiliac joint area. Straight-leg raising test is negative bilaterally. She had pain-free range of motion of all four extremity joints. I have not tested her ambulation skills at this time, but she is independent with bed mobility. Her skin is intact. ASSESSMENT: The patient with malignant hypertension, atypical chest pain, abdominal pain, opiate withdrawal, with nausea, vomiting, hypokalemia, leukocytosis, lactic acidosis and acute kidney injury, and history of rheumatoid arthritis and osteoporosis, diabetes mellitus with peripheral neuropathy, anxiety. RECOMMENDATION: To get her up as tolerated. Home when medically stable with outpatient followup. Dr. Marcum, I appreciate asking me to participate in the care of this interesting patient. I will be glad to follow her with you as needed for her rehabilitation. MAL PATRICK MD DR: GILLES/anayeli JOB#: [id number] / [id number]
[2016-09-14] MEDS ORDERED: DIPHENHYDRAMINE 50 MG/ML VIAL IVP ONE (22:15)
[2016-09-14] MEDS ORDERED: DIPHENHYDRAMINE HCL 25 MG CAPSULE PO PRN (22:15)
[2016-09-15] VITALS (11 sets, daily range): BP systolic 118–183; BP diastolic 73–99
[2016-09-15] MEDS: hydrALAZINE 20 MG/ML VIAL. IVP PRN (01:25)
[2016-09-15 03:52] LABS: BASO # 0.1 x10^3/uL (0.0-0.2); BASO % 0 % (0-3); EOS % 0 % (0-3); HEMATOCRIT 41.4 % (36.0-47.0); HEMOGLOBIN 13.7 g/dL (12.0-15.5); LYMPH # 2.1 x10^3/uL (1.0-4.8); LYMPH % 16 % (24-48); MEAN CORPUSCULAR HEMOGLOBIN 30 pg (25-35); MEAN CORPUSCULAR HGB CONC 33 g/dL (31-37); MEAN CORPUSCULAR VOLUME 91 fL (79-100); MONO % 8 % (0-9); NEUT % 76 % (31-73); PLATELET COUNT 222 x10^3/uL (140-400); RED BLOOD COUNT 4.55 x10^6/uL (3.50-5.40); RED CELL DISTRIBUTION WIDTH 13.7 % (11.5-14.5); WHITE BLOOD COUNT 13.5 x10^3/uL (4.0-11.0)
[2016-09-15 04:03] LABS: CALCIUM 9.5 mg/dL (8.5-10.1); CREATININE 0.9 mg/dL (0.6-1.0); GFR 79.9; POTASSIUM 3.4 mmol/L (3.5-5.1)
[2016-09-15] MEDS: OXYCODONE/APAP 5/325 TABLET. PO PRN (04:21)
[2016-09-15] MEDS ORDERED: ONDANSETRON PF 4 MG/2 ML VIAL. IV PRN (07:15)
[2016-09-15] MEDS ORDERED: INSULIN ASPART 300 UNITS/3 ML INSULN.PEN SQ SCH (08:00)
[2016-09-15] MEDS ORDERED: PANTOPRAZOLE 40 MG TABLET. PO SCH (08:00)
[2016-09-15] MEDS ORDERED: DEXTROSE 50% 25 GM / 50ML DISP.SYRIN. IV PRN (08:00)
[2016-09-15] MEDS: LISINOPRIL 20 MG TABLET PO SCH (08:58)
[2016-09-15] MEDS: LIDOCAINE (700MG/PATCH) PATCH. TD SCH (08:59)
[2016-09-15] MEDS ORDERED: CLONIDINE HCL 0.1 MG TABLET PO SCH (09:00)
[2016-09-15] MEDS ORDERED: HYDROCHLOROTHIAZIDE 25 MG TABLET PO SCH (09:00)
--- NOTE | 2016-09-15 09:30 | PDOC ---
PROGRESS NOTES Subjective Subjective She c/o being scared going without narcotics.She has taken methadone 20 mg tid before and wants to try small dose of it. Objective Objective Vital Signs Date Time Temp Pulse Resp B/P Pulse Ox O2 Delivery O2 Flow Rate FiO2 09/15/16 08:58 86 129/85 09/15/16 08:00 18 95 Room Air 09/15/16 07:00 99.0 99.0 Intake and Output 09/15/16 07:00 Intake Total 2800 ml Output Total 2965 ml Balance -165 ml Intake Oral 670 ml IV Total 2130 ml Output Urine Total 2325 ml Emesis 640 ml # Bowel Movements 1 Physical Exam Physical Exam She is alert and sitting up in bed and seems to be in no acute distress and she got up to bathroom last night. Assessment Assessment Problems Medical Problems: (1) Malignant hypertension Status: Acute (2) Nausea and vomiting Status: Acute Plan Plan of Care To try her her methadone 10 mg tid and home when medically stable. Comment Review of Relevant I have reviewed the following items roxy (where applicable) has been applied. Labs Laboratory Tests Test 09/13/16 21:40 09/13/16 22:25 09/14/16 00:25 09/14/16 05:35 White Blood Count 11.6x10^3/uL (4.0-11.0) Red Blood Count 4.87x10^6/uL (3.50-5.40) Hemoglobin 14.9g/dL (12.0-15.5) Hematocrit 44.9% (36.0-47.0) Mean Corpuscular Volume 92fL (79-100) Mean Corpuscular Hemoglobin 31pg (25-35) Mean Corpuscular Hemoglobin Concent 33g/dL (31-37) Red Cell Distribution Width 13.7% (11.5-14.5) Platelet Count 220x10^3/uL (140-400) Neutrophils (%) (Auto) 73% (31-73) Lymphocytes (%) (Auto) 19% (24-48) Monocytes (%) (Auto) 7% (0-9) Eosinophils (%) (Auto) 1% (0-3) Basophils (%) (Auto) 1% (0-3) Neutrophils # (Auto) 8.4x10^3uL (1.8-7.7) Lymphocytes # (Auto) 2.2x10^3/uL (1.0-4.8) Monocytes # (Auto) 0.8x10^3/uL (0.0-1.1) Eosinophils # (Auto) 0.1x10^3/uL (0.0-0.7) Basophils # (Auto) 0.1x10^3/uL (0.0-0.2) Sodium Level 141mmol/L (136-145) 138mmol/L (136-145) Potassium Level 3.3mmol/L (3.5-5.1) 3.2mmol/L (3.5-5.1) Chloride Level 101mmol/L (98-107) 99mmol/L (98-107) Carbon Dioxide Level 28mmol/L (21-32) 27mmol/L (21-32) Anion Gap 12 (6-14) 12 (6-14) Blood Urea Nitrogen 15mg/dL (7-20) 10mg/dL (7-20) Creatinine 1.3mg/dL (0.6-1.0) 1.1mg/dL (0.6-1.0) Estimated GFR (Cockcroft-Gault) 52.3 63.4 BUN/Creatinine Ratio 12 (6-20) Glucose Level 106mg/dL (70-99) 159mg/dL (70-99) Calcium Level 9.8mg/dL (8.5-10.1) 9.6mg/dL (8.5-10.1) Magnesium Level 1.9mg/dL (1.8-2.4) Total Bilirubin 0.6mg/dL (0.2-1.0) Aspartate Amino Transf (AST/SGOT) 32U/L (15-37) Alanine Aminotransferase (ALT/SGPT) 48U/L (14-59) Alkaline Phosphatase 108U/L (46-116) Creatine Kinase 214U/L (26-192) Creatine Kinase MB (Mass) < 0.5ng/mL (0.0-3.6) Creatine Kinase MB Relative Index % (0-4) Troponin I Quantitative < 0.017ng/mL (0.000-0.055) < 0.017ng/mL (0.000-0.055) Total Protein 9.9g/dL (6.4-8.2) Albumin 4.5g/dL (3.4-5.0) Albumin/Globulin Ratio 0.8 (1.0-1.7) Lipase 206U/L (73-393) Urine Collection Type Unknown Urine Color Yellow Urine Clarity Clear Urine pH 8.0 Urine Specific [place] 1.010 Urine Protein Negativemg/dL (NEG-TRACE) Urine Glucose (UA) Negativemg/dL (NEG) Urine Ketones (Stick) Negativemg/dL (NEG) Urine Blood Negative (NEG) Urine Nitrite Negative (NEG) Urine Bilirubin Negative (NEG) Urine Urobilinogen Dipstick 0.2mg/dL (0.2 mg/dL) Urine Leukocyte Esterase Small (NEG) Urine RBC Occ/HPF (0-2) Urine WBC 5-10/HPF (0-4) Urine Squamous Epithelial Cells Many/LPF Urine Bacteria Few/HPF (0-FEW) Urine Opiates Screen Neg (NEG) Urine Methadone Screen Neg (NEG) Urine Barbiturates Neg (NEG) Urine Phencyclidine Screen Neg (NEG) Urine Amphetamine/Methamphetamine Neg (NEG) Urine Benzodiazepines Screen Neg (NEG) Urine Cocaine Screen Pos (NEG) Urine Cannabinoids Screen Pos (NEG) Urine Ethyl Alcohol Neg (NEG) Nasal Screen MRSA (PCR) Negative (Negative) Test 09/14/16 11:30 09/15/16 03:39 09/15/16 08:26 Lactic Acid Level 2.2mmol/L (0.4-2.0) 0.6mmol/L (0.4-2.0) Troponin I Quantitative 0.045ng/mL (0.000-0.055) 0.077ng/mL (0.000-0.055) White Blood Count 13.5x10^3/uL (4.0-11.0) Red Blood Count 4.55x10^6/uL (3.50-5.40) Hemoglobin 13.7g/dL (12.0-15.5) Hematocrit 41.4% (36.0-47.0) Mean Corpuscular Volume 91fL (79-100) Mean Corpuscular Hemoglobin 30pg (25-35) Mean Corpuscular Hemoglobin Concent 33g/dL (31-37) Red Cell Distribution Width 13.7% (11.5-14.5) Platelet Count 222x10^3/uL (140-400) Neutrophils (%) (Auto) 76% (31-73) Lymphocytes (%) (Auto) 16% (24-48) Monocytes (%) (Auto) 8% (0-9) Eosinophils (%) (Auto) 0% (0-3) Basophils (%) (Auto) 0% (0-3) Neutrophils # (Auto) 10.2x10^3uL (1.8-7.7) Lymphocytes # (Auto) 2.1x10^3/uL (1.0-4.8) Monocytes # (Auto) 1.1x10^3/uL (0.0-1.1) Eosinophils # (Auto) 0.0x10^3/uL (0.0-0.7) Basophils # (Auto) 0.1x10^3/uL (0.0-0.2) Sodium Level 137mmol/L (136-145) Potassium Level 3.4mmol/L (3.5-5.1) Chloride Level 100mmol/L (98-107) Carbon Dioxide Level 25mmol/L (21-32) Anion Gap 12 (6-14) Blood Urea Nitrogen 10mg/dL (7-20) Creatinine 0.9mg/dL (0.6-1.0) Estimated GFR (Cockcroft-Gault) 79.9 Glucose Level 129mg/dL (70-99) Calcium Level 9.5mg/dL (8.5-10.1) Glucose (Fingerstick) 96mg/dL (70-99) Laboratory Tests Test 09/14/16 11:30 09/15/16 03:39 09/15/16 08:26 Lactic Acid Level 2.2mmol/L (0.4-2.0) 0.6mmol/L (0.4-2.0) Troponin I Quantitative 0.045ng/mL (0.000-0.055) 0.077ng/mL (0.000-0.055) White Blood Count 13.5x10^3/uL (4.0-11.0) Red Blood Count 4.55x10^6/uL (3.50-5.40) Hemoglobin 13.7g/dL (12.0-15.5) Hematocrit 41.4% (36.0-47.0) Mean Corpuscular Volume 91fL (79-100) Mean Corpuscular Hemoglobin 30pg (25-35) Mean Corpuscular Hemoglobin Concent 33g/dL (31-37) Red Cell Distribution Width 13.7% (11.5-14.5) Platelet Count 222x10^3/uL (140-400) Neutrophils (%) (Auto) 76% (31-73) Lymphocytes (%) (Auto) 16% (24-48) Monocytes (%) (Auto) 8% (0-9) Eosinophils (%) (Auto) 0% (0-3) Basophils (%) (Auto) 0% (0-3) Neutrophils # (Auto) 10.2x10^3uL (1.8-7.7) Lymphocytes # (Auto) 2.1x10^3/uL (1.0-4.8) Monocytes # (Auto) 1.1x10^3/uL (0.0-1.1) Eosinophils # (Auto) 0.0x10^3/uL (0.0-0.7) Basophils # (Auto) 0.1x10^3/uL (0.0-0.2) Sodium Level 137mmol/L (136-145) Potassium Level 3.4mmol/L (3.5-5.1) Chloride Level 100mmol/L (98-107) Carbon Dioxide Level 25mmol/L (21-32) Anion Gap 12 (6-14) Blood Urea Nitrogen 10mg/dL (7-20) Creatinine 0.9mg/dL (0.6-1.0) Estimated GFR (Cockcroft-Gault) 79.9 Glucose Level 129mg/dL (70-99) Calcium Level 9.5mg/dL (8.5-10.1) Glucose (Fingerstick) 96mg/dL (70-99) Microbiology 09/13/16 Urine Culture - Preliminary, Resulted 09/13/16 Urine Culture Result 1 (JAMARCUS) - Preliminary, Resulted Medications Current Medications Ondansetron HCl (Zofran) 4 mg STK-MED ONCE .ROUTE ; Start 09/13/16 at 21:49; Stop 09/13/16 at 21:50; Status DC Lorazepam 1 mg 1 mg 1X ONCE IV Last administered on 09/13/16 22:24; Start at 22:15; Stop 09/13/16 at 22:16; Status DC Sodium Chloride (Iv Sodium Chloride 0.9% 1000ml Bag) 1,000 ml @ 1,000 mls/hr Q1H IV Last administered on 09/13/16 22:30; Start 09/13/16 at 22:15; Stop at 23:14; Status DC Clonidine HCl 0.3 mg 0.3 mg 1X ONCE PO Last administered on 09/13/16 22:21; Start 09/13/16 at 22:15; Stop 09/13/16 at 22:16; Status DC Nicardipine HCl/ Sodium Chloride (Cardene/Iv Sodium Chloride 0.9% 250ml) 270 ml @ 0 mls/hr CONT PRN IV SEE I/O RECORD Last administered on 09/13/16 23:30; Start 09/13/16 at 23:30 Ondansetron HCl 4 mg 4 mg PRN Q8HRS PRN IV NAUSEA/VOMITING; Start 09/13/16 at 23:45; Stop 09/14/16 at 07:28; Status DC Sodium Chloride (Iv Sodium Chloride 0.9% 1000ml Bag) 1,000 ml @ 100 mls/hr Q10H IV Last administered on 09/14/16 00:55; Start 09/13/16 at 23:45; Stop at 07:28; Status DC Acetaminophen (Tylenol) 650 mg PRN Q4HRS PRN PO FEVER; Start 09/13/16 at 23:45 ; Stop 09/14/16 at 07:28; Status DC Lorazepam (Ativan) 2 mg PRN Q4HRS PRN IV ANXIETY / AGITATION; Start 09/13/16 at 23:45; Stop 09/14/16 at 00:43; Status DC Lorazepam 2 mg 2 mg PRN Q2HR PRN IV ANXIETY / AGITATION Last administered on 09:14; Start 09/14/16 at 00:45 Potassium Chloride/Sodium Chloride (Iv Sodium Chloride 0.9% 1000ml Bag) 1,020 ml @ 75 mls/hr [id number] IV ; Start 09/14/16 at 08:00; Stop 09/14/16 at 08:00; Status DC Ondansetron HCl (Zofran) 4 mg PRN Q8HRS PRN IV NAUSEA/VOMITING Last administered on 09/14/16 08:05; Start 09/14/16 at 07:15; Stop 09/14/16 at 08:41 ; Status DC Acetaminophen (Tylenol) 650 mg PRN Q4HRS PRN PO FEVER; Start 09/14/16 at 07:15 Hydralazine HCl (Apresoline) 10 mg PRN Q4HRS PRN IVP ELEVATED BP, SEE COMMENTS ; Start 09/14/16 at 07:15; Stop 09/14/16 at 07:47; Status DC Pantoprazole Sodium (Protonix) 40 mg DAILYAC PO ; Start 09/14/16 at 07:30; Stop 09/14/16 at 07:47; Status DC Folic Acid (Folic Acid) 1 mg DAILY PO ; Start 09/14/16 at 09:00; Stop 09/14/16 at 09:00; Status DC Hydroxyzine Pamoate (Vistaril) 25 mg PRN Q4HRS PRN PO ALLERGIES; Start at 07:15; Stop 09/14/16 at 07:47; Status DC Lisinopril (Prinivil) 20 mg DAILY PO ; Start 09/14/16 at 09:00; Stop 09/14/16 at 09:00; Status DC Ziprasidone (Geodon) 20 mg BID PO ; Start 09/14/16 at 09:00; Stop 09/14/16 at 09 :00; Status DC Multivitamins 1 tab 1 tab DAILY PO ; Start 09/14/16 at 09:00; Stop 09/14/16 at 09:00; Status DC Sodium Chloride (Iv Sodium Chloride 0.9% 1000ml Bag) 1,000 ml @ 100 mls/hr Q10H IV ; Start 09/14/16 at 07:45; Stop 09/15/16 at 07:49; Status DC Ondansetron HCl 4 mg 4 mg PRN Q6HRS PRN IV NAUSEA/VOMITING, 1ST CHOICE Last administered on 09/14/16t 22:18; Start 09/15/16 at 07:15 Promethazine HCl 12.5 mg/Sodium Chloride 50.5 ml @ 151.5 mls/ hr PRN Q6HRS PRN IV NAUSEA/VOMITING, 2ND CHOICE; Start 09/14/16 at 09:00 Potassium Chloride (KCl Premix 10meq) 100 ml @ 100 mls/hr Q1H IV Last administered on 09/14/16 12:50; Start 09/14/16 at 09:00; Stop 09/14/16 at 10:59 ; Status DC Oxycodone/ Acetaminophen (Percocet 5/325) 1 tab PRN Q4HRS PRN PO PAIN Last administered on 09/15/16 04:21; Start 09/14/16 at 12:30 Morphine Sulfate 2 mg PRN Q2HR PRN IV PAIN Last administered on 09/15/16 00:06 ; Start 09/14/16 at 12:30 Lidocaine (Lidoderm) 1 patch DAILY TD Last administered on 09/15/16 08:59; Start 09/14/16 at 13:00 Lisinopril (Prinivil) 20 mg DAILY PO Last administered on 09/15/16 08:58; Start 09/14/16 at 13:30 Hydralazine HCl (Apresoline) 10 mg PRN Q4HRS PRN IVP ELEVATED BP, SEE COMMENTS Last administered on 09/15/16 01:25; Start 09/14/16 at 13:30 Diphenhydramine HCl (Benadryl) 25 mg 1X ONCE IVP Last administered on 22:18; Start 09/14/16 at 22:15; Stop 09/14/16 at 22:16; Status DC Diphenhydramine HCl (Benadryl) 25 mg PRN Q6HRS PRN PO ITCHING; Start 09/14/16 at 22:15 Ondansetron HCl (Zofran) 4 mg PRN Q8HRS PRN IV NAUSEA/VOMITING; Start 09/14/16 at 22:15; Stop 09/15/16 at 07:51; Status DC Clonidine HCl (Catapres) 0.1 mg Q8HRS PO ; Start 09/15/16 at 09:00 Hydrochlorothiazide (Hydrodiuril) 25 mg DAILY PO ; Start 09/15/16 at 09:00 Insulin Aspart (Novolog) 0-9 UNITS TIDWMEALS SQ ; Start 09/15/16 at 08:00 Dextrose 12.5 gm PRN Q15MIN PRN IV SEE COMMENTS; Start 09/15/16 at 08:00 Pantoprazole Sodium (Protonix) 40 mg DAILYAC PO Last administered on 09/15/16t 08:56; Start 09/15/16 at 08:00 Active Scripts Active Reported Multi-Day Vitamins (Multivitamin) 1 Each Tablet 1 Tab PO DAILY Folic Acid 1 Mg Tablet 1 Mg PO DAILY Vistaril (Hydroxyzine Pamoate) 25 Mg Capsule 25 Mg PO Q4HRS PRN 180 Days Geodon (Ziprasidone Hcl) 20 Mg Capsule 1 Cap PO BID Lisinopril 20 Mg Tablet 1 Tab PO DAILY Vitals/I & O Vital Sign - Last 24 Hours 09/14/16 09/14/16 09/14/16 09/14/16 10:00 11:24 12:36 12:48 Temp 98.1 98.1 Pulse 103 112 106 Resp 16 16 12 16 B/P 156/76 151/75 154/83 Pulse Ox 99 98 O2 Delivery Room Air Room Air Room Air Room Air 09/14/16 09/14/16 09/14/16 09/14/16 13:46 14:20 14:21 14:44 Pulse 110 110 110 110 Resp 12 12 B/P 162/75 162/75 162/75 157/39 Pulse Ox 96 O2 Delivery Room Air Room Air 09/14/16 09/14/16 09/14/16 09/14/16 15:40 16:35 17:43 18:35 Temp 98.0 98.0 Pulse 109 100 100 96 Resp 12 14 14 22 B/P 147/53 152/72 151/61 151/61 Pulse Ox 97 97 98 O2 Delivery Room Air Room Air Room Air Room Air 09/14/16 09/14/16 09/14/16 09/14/16 19:30 20:30 21:30 22:30 Temp 98.4 98.4 Pulse 82 80 82 114 Resp 18 18 22 22 B/P 141/80 136/99 162/82 157/101 Pulse Ox 95 94 96 97 O2 Delivery Room Air Room Air Room Air Room Air 09/14/16 09/14/16 09/15/16 09/15/16 23:00 23:30 00:06 00:30 Pulse 82 88 Resp 22 20 20 20 B/P 174/90 171/78 Pulse Ox 96 100 100 98 O2 Delivery Room Air Room Air Room Air Room Air 09/15/16 09/15/16 09/15/16 09/15/16 00:40 01:25 01:30 02:30 Pulse 80 82 97 Resp 18 20 20 B/P 171/101 155/80 171/89 Pulse Ox 96 96 98 O2 Delivery Room Air Room Air Room Air 09/15/16 09/15/16 09/15/16 09/15/16 03:35 04:21 04:35 05:25 Pulse 102 87 Resp 20 18 18 B/P 166/93 183/99 Pulse Ox 96 96 96 97 O2 Delivery Room Air Room Air Room Air Room Air 09/15/16 09/15/16 09/15/16 09/15/16 05:35 06:35 07:00 08:00 Temp 99.0 99.0 Pulse 90 86 70 72 Resp 18 18 B/P 122/75 150/86 150/86 127/77 Pulse Ox 97 95 95 95 O2 Delivery Room Air Room Air Room Air Room Air 09/15/16 08:58 Pulse 86 B/P 129/85 Intake and Output 09/14/16 09/14/16 09/15/16 15:00 23:00 07:00 Intake Total 2320 ml 480 ml Output Total 1900 ml 1065 ml Balance 420 ml -585 ml MAL PATRICK MD Sep 15, 2016 09:30
--- NOTE | 2016-09-15 09:38 | PDOC2 ---
GI CONSULT Reason For Consult: Blood-tinged emesis, abd pain HPI: HPI: History from chart, staff, pt. 51 y/o AA female recently at a detox center for substance abuse/addictions, admitted through ER w/ malignant HTN. Tox screen + cocaine, cannabinoids. Has had nausea (ongoing) and abd pain (resolved) and apparently overnight had 1 episode of blood-tinged emesis (no recurrence). Hgb and BUN stable. On PPI. Denies GI history, feels symptoms related to withdrawal. No diarrhea, constipation, reflux/heartburn/dyspepsia, weight loss. No hematochezia, melena. Does mention EGD was recommended for abd pain at [facility] once; she left AMA before this was performed. No previous colonoscopy either. PMH: PMH: HTN, anxiety, addictions/substance abuse, RA (treated w/ opiates), DM, osteoporosis, ganglion cyst removal FH: Family History: No pertinent hx (denies GI cancers) Social History: Smoke: No ALCOHOL: none Drugs: Cocaine, Marijuana, Heroin, Crystal meth ROS: GEN: Denies fevers, chills, sweats HEENT: Denies blurred vision, sore throat CV: +chest pain RESP: Denies shortness of air, cough GI: Per HPI : Denies hematuria, dysuria ENDO: Denies weight changes NEURO: Denies confusion, dizziness MSK: Denies weakness, joint pain/swelling SKIN: Denies jaundice, pruritus VItals: Vitals: Vital Signs Date Time Temp Pulse Resp B/P Pulse Ox O2 Delivery O2 Flow Rate FiO2 09/15/16 08:58 86 129/85 09/15/16 08:00 18 95 Room Air 09/15/16 07:00 99.0 99.0 Labs: Labs: Laboratory Tests Test 09/14/16 11:30 09/15/16 03:39 09/15/16 08:26 Lactic Acid Level 2.2mmol/L (0.4-2.0) 0.6mmol/L (0.4-2.0) Troponin I Quantitative 0.045ng/mL (0.000-0.055) 0.077ng/mL (0.000-0.055) White Blood Count 13.5x10^3/uL (4.0-11.0) Red Blood Count 4.55x10^6/uL (3.50-5.40) Hemoglobin 13.7g/dL (12.0-15.5) Hematocrit 41.4% (36.0-47.0) Mean Corpuscular Volume 91fL (79-100) Mean Corpuscular Hemoglobin 30pg (25-35) Mean Corpuscular Hemoglobin Concent 33g/dL (31-37) Red Cell Distribution Width 13.7% (11.5-14.5) Platelet Count 222x10^3/uL (140-400) Neutrophils (%) (Auto) 76% (31-73) Lymphocytes (%) (Auto) 16% (24-48) Monocytes (%) (Auto) 8% (0-9) Eosinophils (%) (Auto) 0% (0-3) Basophils (%) (Auto) 0% (0-3) Neutrophils # (Auto) 10.2x10^3uL (1.8-7.7) Lymphocytes # (Auto) 2.1x10^3/uL (1.0-4.8) Monocytes # (Auto) 1.1x10^3/uL (0.0-1.1) Eosinophils # (Auto) 0.0x10^3/uL (0.0-0.7) Basophils # (Auto) 0.1x10^3/uL (0.0-0.2) Sodium Level 137mmol/L (136-145) Potassium Level 3.4mmol/L (3.5-5.1) Chloride Level 100mmol/L (98-107) Carbon Dioxide Level 25mmol/L (21-32) Anion Gap 12 (6-14) Blood Urea Nitrogen 10mg/dL (7-20) Creatinine 0.9mg/dL (0.6-1.0) Estimated GFR (Cockcroft-Gault) 79.9 Glucose Level 129mg/dL (70-99) Calcium Level 9.5mg/dL (8.5-10.1) Glucose (Fingerstick) 96mg/dL (70-99) Allergies: Coded Allergies: No Known Drug Allergies (Unverified , 09/13/16) Medications: Current Medications Medications (Trade) Dose Ordered Sig/Jeancarlos Route PRN Reason Start Time Stop Time Status Last Admin Dose Admin Ondansetron HCl (Zofran) 4 mg PRN Q6HRS PRN IV NAUSEA/VOMITING, 1ST CHOICE 09/15/16 07:15 09/14/16 22:18 Oxycodone/ Acetaminophen (Percocet 5/325) 1 tab PRN Q4HRS PRN PO PAIN 09/14/16 12:30 09/15/16 04:21 Morphine Sulfate 2 mg PRN Q2HR PRN IV PAIN 09/14/16 12:30 09/15/16 00:06 Lidocaine (Lidoderm) 1 patch DAILY TD 09/14/16 13:00 09/15/16 08:59 Lisinopril (Prinivil) 20 mg DAILY PO 09/14/16 13:30 09/15/16 08:58 Hydralazine HCl (Apresoline) 10 mg PRN Q4HRS PRN IVP ELEVATED BP, SEE COMMENTS 09/14/16 13:30 09/15/16 01:25 Diphenhydramine HCl (Benadryl) 25 mg 1X ONCE IVP 09/14/16 22:15 09/14/16 22:16 DC 09/14/16 22:18 Pantoprazole Sodium (Protonix) 40 mg DAILYAC PO 09/15/16 08:00 09/15/16 08:56 Imaging: Imaging: CT A/P w/o contrast Impression: 1. Enlarged uterus with a small amount of deep pelvic fluid. Findings are nonspecific and may be physiologic. Clinical correlation is recommended. If clinically warranted, further evaluation with transabdominal and endovaginal pelvic ultrasound could be pursued. 2. Grade 1 anterolisthesis of L4 on L5 with unilateral and possibly bilateral pars defects at L4. 3. No other discernible acute abdominal abnormality. CXR IMPRESSION: No acute or focal process is seen in chest PE: GEN: NAD, sitting up in bed, breakfast tray untouched HEENT: Atraumatic, PERRL LUNGS: CTAB HEART: RRR ABD: BS quiet, S/ND/NT EXTREMITY: No edema SKIN: No rashes, no jaundice NEURO/PSYCH: A & O 3 A/P: A/P: Malignant HTN -per cardiology Substance abuse/withdrawal -released 09/12 from detox Hematemesis, abd pain, nausea -blood-tinged emesis overnight, labs stable -on PPI -Hgb, BUN solid CRC screen -no previous -- Continue management of HTN, withdrawal. GI-ayala, continue PPI, anti-emetics. CASSI RICE Sep 15, 2016 09:38
[2016-09-15] MEDS ORDERED: METH5TAB2 PO (09:57)
[2016-09-15] MEDS ORDERED: POTASSIUM CHLORIDE 20 MEQ TABLET.ER. PO ONE (10:00)
[2016-09-15] MEDS ORDERED: METHADONE 10 MG TABLET. PO SCH (10:00)
--- NOTE | 2016-09-15 10:00 | PDOC3 ---
Discharge Summary Visit Information Date of Admission: Sep 13, 2016 Date of Discharge: Sep 15, 2016 Final Diagnosis Problems Medical Problems: (1) Malignant hypertension Status: Acute (2) Nausea and vomiting Status: Acute Brief Hospital Course Allergies Allergies Coded Allergies Type Severity Reaction Last Updated Verified No Known Drug Allergies 09/13/16 No Vital Signs Vital Signs Date Time Temp Pulse Resp B/P Pulse Ox O2 Delivery O2 Flow Rate FiO2 09/15/16 08:58 86 129/85 09/15/16 08:00 18 95 Room Air 09/15/16 07:00 99.0 99.0 Lab Results Laboratory Tests Test 09/13/16 21:40 09/13/16 22:25 09/14/16 00:25 09/14/16 05:35 White Blood Count 11.6x10^3/uL (4.0-11.0) Red Blood Count 4.87x10^6/uL (3.50-5.40) Hemoglobin 14.9g/dL (12.0-15.5) Hematocrit 44.9% (36.0-47.0) Mean Corpuscular Volume 92fL (79-100) Mean Corpuscular Hemoglobin 31pg (25-35) Mean Corpuscular Hemoglobin Concent 33g/dL (31-37) Red Cell Distribution Width 13.7% (11.5-14.5) Platelet Count 220x10^3/uL (140-400) Neutrophils (%) (Auto) 73% (31-73) Lymphocytes (%) (Auto) 19% (24-48) Monocytes (%) (Auto) 7% (0-9) Eosinophils (%) (Auto) 1% (0-3) Basophils (%) (Auto) 1% (0-3) Neutrophils # (Auto) 8.4x10^3uL (1.8-7.7) Lymphocytes # (Auto) 2.2x10^3/uL (1.0-4.8) Monocytes # (Auto) 0.8x10^3/uL (0.0-1.1) Eosinophils # (Auto) 0.1x10^3/uL (0.0-0.7) Basophils # (Auto) 0.1x10^3/uL (0.0-0.2) Sodium Level 141mmol/L (136-145) 138mmol/L (136-145) Potassium Level 3.3mmol/L (3.5-5.1) 3.2mmol/L (3.5-5.1) Chloride Level 101mmol/L (98-107) 99mmol/L (98-107) Carbon Dioxide Level 28mmol/L (21-32) 27mmol/L (21-32) Anion Gap 12 (6-14) 12 (6-14) Blood Urea Nitrogen 15mg/dL (7-20) 10mg/dL (7-20) Creatinine 1.3mg/dL (0.6-1.0) 1.1mg/dL (0.6-1.0) Estimated GFR (Cockcroft-Gault) 52.3 63.4 BUN/Creatinine Ratio 12 (6-20) Glucose Level 106mg/dL (70-99) 159mg/dL (70-99) Calcium Level 9.8mg/dL (8.5-10.1) 9.6mg/dL (8.5-10.1) Magnesium Level 1.9mg/dL (1.8-2.4) Total Bilirubin 0.6mg/dL (0.2-1.0) Aspartate Amino Transf (AST/SGOT) 32U/L (15-37) Alanine Aminotransferase (ALT/SGPT) 48U/L (14-59) Alkaline Phosphatase 108U/L (46-116) Creatine Kinase 214U/L (26-192) Creatine Kinase MB (Mass) < 0.5ng/mL (0.0-3.6) Creatine Kinase MB Relative Index % (0-4) Troponin I Quantitative < 0.017ng/mL (0.000-0.055) < 0.017ng/mL (0.000-0.055) Total Protein 9.9g/dL (6.4-8.2) Albumin 4.5g/dL (3.4-5.0) Albumin/Globulin Ratio 0.8 (1.0-1.7) Lipase 206U/L (73-393) Urine Collection Type Unknown Urine Color Yellow Urine Clarity Clear Urine pH 8.0 Urine Specific [place] 1.010 Urine Protein Negativemg/dL (NEG-TRACE) Urine Glucose (UA) Negativemg/dL (NEG) Urine Ketones (Stick) Negativemg/dL (NEG) Urine Blood Negative (NEG) Urine Nitrite Negative (NEG) Urine Bilirubin Negative (NEG) Urine Urobilinogen Dipstick 0.2mg/dL (0.2 mg/dL) Urine Leukocyte Esterase Small (NEG) Urine RBC Occ/HPF (0-2) Urine WBC 5-10/HPF (0-4) Urine Squamous Epithelial Cells Many/LPF Urine Bacteria Few/HPF (0-FEW) Urine Opiates Screen Neg (NEG) Urine Methadone Screen Neg (NEG) Urine Barbiturates Neg (NEG) Urine Phencyclidine Screen Neg (NEG) Urine Amphetamine/Methamphetamine Neg (NEG) Urine Benzodiazepines Screen Neg (NEG) Urine Cocaine Screen Pos (NEG) Urine Cannabinoids Screen Pos (NEG) Urine Ethyl Alcohol Neg (NEG) Nasal Screen MRSA (PCR) Negative (Negative) Test 09/14/16 11:30 09/15/16 03:39 09/15/16 08:26 Lactic Acid Level 2.2mmol/L (0.4-2.0) 0.6mmol/L (0.4-2.0) Troponin I Quantitative 0.045ng/mL (0.000-0.055) 0.077ng/mL (0.000-0.055) White Blood Count 13.5x10^3/uL (4.0-11.0) Red Blood Count 4.55x10^6/uL (3.50-5.40) Hemoglobin 13.7g/dL (12.0-15.5) Hematocrit 41.4% (36.0-47.0) Mean Corpuscular Volume 91fL (79-100) Mean Corpuscular Hemoglobin 30pg (25-35) Mean Corpuscular Hemoglobin Concent 33g/dL (31-37) Red Cell Distribution Width 13.7% (11.5-14.5) Platelet Count 222x10^3/uL (140-400) Neutrophils (%) (Auto) 76% (31-73) Lymphocytes (%) (Auto) 16% (24-48) Monocytes (%) (Auto) 8% (0-9) Eosinophils (%) (Auto) 0% (0-3) Basophils (%) (Auto) 0% (0-3) Neutrophils # (Auto) 10.2x10^3uL (1.8-7.7) Lymphocytes # (Auto) 2.1x10^3/uL (1.0-4.8) Monocytes # (Auto) 1.1x10^3/uL (0.0-1.1) Eosinophils # (Auto) 0.0x10^3/uL (0.0-0.7) Basophils # (Auto) 0.1x10^3/uL (0.0-0.2) Sodium Level 137mmol/L (136-145) Potassium Level 3.4mmol/L (3.5-5.1) Chloride Level 100mmol/L (98-107) Carbon Dioxide Level 25mmol/L (21-32) Anion Gap 12 (6-14) Blood Urea Nitrogen 10mg/dL (7-20) Creatinine 0.9mg/dL (0.6-1.0) Estimated GFR (Cockcroft-Gault) 79.9 Glucose Level 129mg/dL (70-99) Calcium Level 9.5mg/dL (8.5-10.1) Glucose (Fingerstick) 96mg/dL (70-99) Laboratory Tests Test 09/14/16 11:30 09/15/16 03:39 09/15/16 08:26 Lactic Acid Level 2.2mmol/L (0.4-2.0) 0.6mmol/L (0.4-2.0) Troponin I Quantitative 0.045ng/mL (0.000-0.055) 0.077ng/mL (0.000-0.055) White Blood Count 13.5x10^3/uL (4.0-11.0) Red Blood Count 4.55x10^6/uL (3.50-5.40) Hemoglobin 13.7g/dL (12.0-15.5) Hematocrit 41.4% (36.0-47.0) Mean Corpuscular Volume 91fL (79-100) Mean Corpuscular Hemoglobin 30pg (25-35) Mean Corpuscular Hemoglobin Concent 33g/dL (31-37) Red Cell Distribution Width 13.7% (11.5-14.5) Platelet Count 222x10^3/uL (140-400) Neutrophils (%) (Auto) 76% (31-73) Lymphocytes (%) (Auto) 16% (24-48) Monocytes (%) (Auto) 8% (0-9) Eosinophils (%) (Auto) 0% (0-3) Basophils (%) (Auto) 0% (0-3) Neutrophils # (Auto) 10.2x10^3uL (1.8-7.7) Lymphocytes # (Auto) 2.1x10^3/uL (1.0-4.8) Monocytes # (Auto) 1.1x10^3/uL (0.0-1.1) Eosinophils # (Auto) 0.0x10^3/uL (0.0-0.7) Basophils # (Auto) 0.1x10^3/uL (0.0-0.2) Sodium Level 137mmol/L (136-145) Potassium Level 3.4mmol/L (3.5-5.1) Chloride Level 100mmol/L (98-107) Carbon Dioxide Level 25mmol/L (21-32) Anion Gap 12 (6-14) Blood Urea Nitrogen 10mg/dL (7-20) Creatinine 0.9mg/dL (0.6-1.0) Estimated GFR (Cockcroft-Gault) 79.9 Glucose Level 129mg/dL (70-99) Calcium Level 9.5mg/dL (8.5-10.1) Glucose (Fingerstick) 96mg/dL (70-99) Brief Hospital Course Ms. Pulido is a 51 old [sex] who presented with chest pain and anxiety, Was found to have SBP 200s at ER, started on nicardipine gtt, Significant for somnolence, signs of possible withdrawal from opiates, emesis, back pain, abd pain, CT scan showed no acute abd pathology but spondylolisthesis,.Co managed with physiatry, Agreeable to restarting low dose methadone 10 tid, doing better Off cardene gtt, on lisinopril 20 PO qD, Claims compliance. BP stable with just this home regimen, DId not want me to start any other antihypertensives Pt seen and examined,Dw CVC RN and pt Discharge Information Scheduled Folic Acid (Folic Acid) 1 MG PO DAILY (Reported) Lisinopril (Lisinopril) 1 TAB PO DAILY (Reported) Multivitamin (Multi-Day Vitamins) 1 TAB PO DAILY (Reported) Ziprasidone Hcl (Geodon) 1 CAP PO BID (Reported) Scheduled PRN Hydroxyzine Pamoate (Vistaril) 25 MG PO Q4HRS PRN PRN ANXIETY / AGITATION ( Reported) OLVIN FAGAN MD Sep 15, 2016 10:00
--- NOTE | 2016-09-15 10:46 | PDOC ---
CARDIO Progress Notes Date and Time Date of Service 09/15/16 Time of Evaluation 1030 Subjective Subjective: No Chest Pain, No shortness of breath, No Palpitations Vitals Vitals Vital Signs Date Time Temp Pulse Resp B/P Pulse Ox O2 Delivery O2 Flow Rate FiO2 09/15/16 10:00 76 18 134/73 95 Room Air 09/15/16 07:00 99.0 99.0 Weight Weight [ ] Input and Output Intake and Output Intake and Output 09/15/16 07:00 Intake Total 2800 ml Output Total 2965 ml Balance -165 ml Intake Oral 670 ml IV Total 2130 ml Output Urine Total 2325 ml Emesis 640 ml # Bowel Movements 1 Laboratory Labs Laboratory Tests Test 09/14/16 11:30 09/15/16 03:39 09/15/16 08:26 Lactic Acid Level 2.2mmol/L (0.4-2.0) 0.6mmol/L (0.4-2.0) Troponin I Quantitative 0.045ng/mL (0.000-0.055) 0.077ng/mL (0.000-0.055) White Blood Count 13.5x10^3/uL (4.0-11.0) Red Blood Count 4.55x10^6/uL (3.50-5.40) Hemoglobin 13.7g/dL (12.0-15.5) Hematocrit 41.4% (36.0-47.0) Mean Corpuscular Volume 91fL (79-100) Mean Corpuscular Hemoglobin 30pg (25-35) Mean Corpuscular Hemoglobin Concent 33g/dL (31-37) Red Cell Distribution Width 13.7% (11.5-14.5) Platelet Count 222x10^3/uL (140-400) Neutrophils (%) (Auto) 76% (31-73) Lymphocytes (%) (Auto) 16% (24-48) Monocytes (%) (Auto) 8% (0-9) Eosinophils (%) (Auto) 0% (0-3) Basophils (%) (Auto) 0% (0-3) Neutrophils # (Auto) 10.2x10^3uL (1.8-7.7) Lymphocytes # (Auto) 2.1x10^3/uL (1.0-4.8) Monocytes # (Auto) 1.1x10^3/uL (0.0-1.1) Eosinophils # (Auto) 0.0x10^3/uL (0.0-0.7) Basophils # (Auto) 0.1x10^3/uL (0.0-0.2) Sodium Level 137mmol/L (136-145) Potassium Level 3.4mmol/L (3.5-5.1) Chloride Level 100mmol/L (98-107) Carbon Dioxide Level 25mmol/L (21-32) Anion Gap 12 (6-14) Blood Urea Nitrogen 10mg/dL (7-20) Creatinine 0.9mg/dL (0.6-1.0) Estimated GFR (Cockcroft-Gault) 79.9 Glucose Level 129mg/dL (70-99) Calcium Level 9.5mg/dL (8.5-10.1) Glucose (Fingerstick) 96mg/dL (70-99) Microbiology Micro Microbiology 09/13/16 Urine Culture - Preliminary, Resulted 09/13/16 Urine Culture Result 1 (JAMARCUS) - Preliminary, Resulted Physical Exam HEENT: Neck Supple W Full Motion Chest: Symmetric LUNGS: Clear to Auscultation Heart: S1S2, RRR Abdomen: Soft N/T Extremities: 2+ Dorsalis Pedis, No Edema Neurology: alert, oriented, follow commands Assessment Assessment 1. Malignant hypertension 2. Chest pain, atypical 3. Abdominal pain 4. Polysubstance abuse; withdrawal 5. Emesis 6. Hypokalemia 7. Leukocytosis 8. Lactic acidosis 9. HIMA Recommendations BP normalized- continue JEFFREY No need for additional aniHTN therapy at this time. May discharge home from CV perspective. Discussed importance compliance. NOLA BOYD APRN Sep 15, 2016 10:46
== END 2016-09-15 12:15 | disposition home or self-care (01) | DRG 683 ==
LOC: ER 21:30 → 1 WEST ICU 23:18 → CVICU 09-14 07:45
PROVIDERS: ADMIT Internal Medicine; ATTEND Internal Medicine
DX: N17.9 Acute kidney failure, unspecified (principal); F11.23 Opioid dependence with withdrawal; E87.2 Acidosis; I10 Essential (primary) hypertension; D72.829 Elevated white blood cell count, unspecified; E11.42 Type 2 diabetes mellitus with diabetic polyneuropathy; E87.6 Hypokalemia; F41.0 Panic disorder [episodic paroxysmal anxiety]; G89.29 Other chronic pain; K21.9 Gastro-esophageal reflux disease without esophagitis; M06.9 Rheumatoid arthritis, unspecified; M43.16 Spondylolisthesis, lumbar region; M81.0 Age-related osteoporosis without current pathological fracture; N85.2 Hypertrophy of uterus; F12.90 Cannabis use, unspecified, uncomplicated
CPT/HCPCS: 36415; 71010; 74176; 80048; 80053; 81001; 82553; 82947; 83605; 83690; 83735; 84484; 85027; 87086; 87641; 93005; 96361; 96365; 96375; G0481; J0360; J1200; J1815; J2060; J2270; J2405; J3480; J7030; J7050; 99285-25

== ENCOUNTER 2020-02-18 11:23 | Emergency (ER) | payer OTHER, MEDICAID ==
[~2020-02-18] VITALS: Ht 170.2 cm; Wt 97.0 kg
[~2020-02-18 11:23] MED LIST: FOLI1TAB16 PO; HYDR-2145 PO; HYDR25CA PO; LISI-334 PO; METH5TAB2 PO; MULT-208 PO; ZIPR20CA2 PO
[2020-02-18 13:39] VITALS: BP 176/99
--- NOTE | 2020-02-18 13:39 | PHYS DOC ---
Past Medical History Past Medical History: Anxiety, Diabetes-Type II, Hypertension, Other Additional Past Medical Histor: OSTEOPOROSIS, RHEUMATOID ARTHRITIS,OPIOD ADDICTION/REHAB (NELLY WEATHERS AGRICULTURE ENGINEER) Past Surgical History: No Surgical History (NELLY WEATHERS AGRICULTURE ENGINEER) Smoking Status: Current Every Day Smoker Alcohol Use: None Drug Use: Marijuana, Opiates (NELLY WEATHERS AGRICULTURE ENGINEER) General Adult EDM: Chief Complaint: UPPER EXTREMITY PAIN HPI: HPI: Patient is a 54 year old female who presents with states she went to the dentist and she has a abscessed right upper tooth that had burst and they gave her penicillin of which she has 4 pills 4 and another refill and some [place]. She states that she does have a appointment to go back to the dentist tomorrow for follow-up. She states that now the whole right side of her neck that goes down into the upper shoulder that started today. She states she went to her Dr. Forte 2 days ago but did not have this problem. She states she awoke this morning with this new pain. She states she took a half a hydrocodone and did not help her pain so she decided to the emergency room. Patient states that she looked up her symptoms on the Internet and saw that she could have sepsis or meningitis. No trismus. Throat is pink without swelling or exudates. Afebrile. Speaks in full clear sentences. Full range of motion of her neck. There is tenderness to the right side of the neck palpation. Patient denies fever, nausea, vomiting, abdominal pain, body aches, diarrhea, cough, chest pain , shortness of breath, numbness or tingling, headache, dizziness, vision changes, focal weakness. Patient has a history of opioid addiction with rehab, rheumatoid arthritis, hypertension, high cholesterol, smoker, diabetes type 2. (NELLY WEATHERS AGRICULTURE ENGINEER) Review of Systems: Review of Systems: Constitutional: Denies fever or chills. [] Eyes: Denies change in visual acuity. [] HENT: Denies nasal congestion or sore throat. Right-sided neck pain. Right upper tooth abscess. [] Respiratory: Denies cough or shortness of breath. [] Cardiovascular: Denies chest pain or edema. [] GI: Denies abdominal pain, nausea, vomiting, bloody stools or diarrhea. [] : Denies dysuria. [] Musculoskeletal: Denies back pain or joint pain. [] Integument: Denies rash. [] Neurologic: Denies headache, focal weakness or sensory changes. [] Endocrine: Denies polyuria or polydipsia. [] Lymphatic: Denies swollen glands. [] Psychiatric: Denies depression or anxiety. [] (NELLY WEATHERS APRN) Heart Score: Risk Factors: Risk Factors: DM, Current or recent (<one month) smoker, HTN, HLP, family history of CAD, obesity. Risk Scores: Score 0 - 3: 2.5% MACE over next 6 weeks - Discharge Home Score 4 - 6: 20.3% MACE over next 6 weeks - Admit for Clinical Observation Score 7 - 10: 72.7% MACE over next 6 weeks - Early Invasive Strategies (NELLY WEATHERS APRN) Allergies: Allergies: Allergies Coded Allergies Type Severity Reaction Last Updated Verified No Known Drug Allergies 09/13/16 No (NELLY WEATHERS APRN) Physical Exam: PE: Constitutional: Well developed, well nourished, no acute distress, non-toxic appearance. [] HENT: Normocephalic, atraumatic, bilateral external ears normal, oropharynx moist, no oral exudates, nose normal. [] Eyes: PERRLA, EOMI, conjunctiva normal, no discharge. [] Neck: Normal range of motion, right-sided neck tenderness, supple, no stridor. [] Cardiovascular:Heart rate regular rhythm, no murmur [] Lungs & Thorax: Bilateral breath sounds clear to auscultation [] Abdomen: Bowel sounds normal, soft, no tenderness, no masses, no pulsatile masses. [] Skin: Warm, dry, no erythema, no rash. [] Back: No tenderness, no CVA tenderness. [] Extremities: No tenderness, no cyanosis, no clubbing, ROM intact, no edema. [] Neurologic: Alert and oriented X 3, normal motor function, normal sensory function, no focal deficits noted. [] Psychologic: Affect normal, judgement normal, mood normal. [] (NELLY WEATHERS APRN) EKG: EKG: [] (NELLY WEATHERS APRN) Radiology/Procedures: Radiology/Procedures: [] (NELLY WEATHERS APRN) Course & Med Decision Making: Course & Med Decision Making Pertinent Labs and Imaging studies reviewed. (See chart for details) See HPI. No focal bony spinal tenderness. PERRLA. Ambulatory with a steady gait. Moves all extremities equally. No rigidity of the neck. Full range of motion of the neck. Right-sided lymph node swelling with tenderness. She is afebrile and denies any fevers. Patient is told to continue taking her penicillin and follow-up with her dentist tomorrow as scheduled. I have spoken to Dr. Inman concerning this patient. He states to give her a dose of dexamethasone and she is to follow-up with her dentist tomorrow. [] (NELLY WEATHERS APRN) Dragon Disclaimer: Dragon Disclaimer: This electronic medical record was generated, in whole or in part, using a voice recognition dictation system. (NELLY WEATHERS APRN) Departure Departure Impression: Primary Impression: Neck pain on right side Disposition: HOME, SELF-CARE Condition: STABLE Referrals: TONYA FORTE MD (PCP) Patient Instructions: Medical Screening Exam Additional Instructions: Follow-up with your dentist as scheduled tomorrow. Continue taking your medications as prescribed. Take medications with food. The dexamethasone and gave you today could cause your blood glucose to be elevated. Justicifation of Admission Dx: Justifications for Admission: Justification of Admission Dx: N/A (NELLY WEATHERS APRN) Attending Signature Attending Signature I have reviewed the PA/DEPLOYMENT SPECIALIST's note and plan of care. I was available for consultation as needed at all times during the patient's visit in the emergency department. I agree with the clinical impression, plan and disposition. (DAMIEN INMAN DO) NELLY WEATHERS APRN Feb 18, 2020 13:39 DAMIEN INMAN DO Feb 20, 2020 09:06
[2020-02-18] MEDS ORDERED: DEXAMETHASONE 4 MG TABLET PO SCH (14:15)
[2020-02-18] MEDS ORDERED: DEXAMETHASONE 4 MG TABLET PO ONE (14:30)
== END 2020-02-18 14:27 | disposition home or self-care (01) ==
LOC: ER 11:23
DX: M54.2 Cervicalgia (principal); K04.7 Periapical abscess without sinus; R59.9 Enlarged lymph nodes, unspecified; E11.9 Type 2 diabetes mellitus without complications; I10 Essential (primary) hypertension; E78.00 Pure hypercholesterolemia, unspecified; M06.9 Rheumatoid arthritis, unspecified; F17.200 Nicotine dependence, unspecified, uncomplicated
CPT/HCPCS: 99283